=== PATIENT | female | born 1995 | race Caucasian/White ===

== ENCOUNTER 2017-05-17 22:00 | Emergency (ER) | payer OTHER ==
[~2017-05-17] VITALS: Ht 165.1 cm; Wt 90.7 kg
[2017-05-17] MEDS ORDERED: PROPOFOL 10 MG/ML 20 ML IV ONE (23:00)
[2017-05-17] MEDS ORDERED: PROPOFOL 100 ML IV ONE (23:02)
[2017-05-18] MEDS ORDERED: HYDROcodone-ACET 5/325MG TAB PO ONE
[2017-05-18 01:49] VITALS: BP 108/60
== END 2017-05-18 02:50 | disposition home or self-care (01) ==
LOC: EDBD 22:00 → ER 22:19
DX: S83.005A Unspecified dislocation of left patella, initial encounter (principal); Z88.0 Allergy status to penicillin; X58.XXXA Exposure to other specified factors, initial encounter; Y93.01 Activity, walking, marching and hiking; Y92.89 Other specified places as the place of occurrence of the external cause; Y99.8 Other external cause status
CPT/HCPCS: 27560; 73560; 73562; 99152; 99285; J2704

== ENCOUNTER 2024-12-02 09:09 | Emergency (ER) | payer MEDICAID, OTHER ==
[~2024-12-02] VITALS: Ht 165.1 cm; Wt 90.0 kg
[2024-12-02 09:57] VITALS: BP 135/79; PULSE 92; RESP 18; TEMP 98.6; O2SAT 97
[2024-12-02 10:22] LABS: Rapid Strep A Screen-Throat Negative
[2024-12-02 10:34] LABS: COVID19 ANTIGEN SOFIA FIA NEGATIVE (NEGATIVE)
--- NOTE | 2024-12-02 10:39 | ED.PDOC ---
Eye-HPI HPI Comments 29 year old presents for sore throat, right neck tenderness, body aches, fatigue Symptoms started 5 days ago Taking IBU with some improvement Denies fevers chills night sweats unintentional weight loss Denies persistent chest pain, shortness of breath, leg swelling Denies history of asthma nor any breathing conditions Denies history of pneumonia Denies recent international travel Chief Complaint: Sore Throat Time Seen by MD: 09:51 Reviewed Notes: Nurses Notes, Medications, Allergies Allergies: Coded Allergies: Penicillins (Verified Allergy, Unknown, 05/17/17) Home Meds Active Scripts Acetaminophen (Acetaminophen) 500 Mg Tab, 500 MG PO Q6HP PRN for 10 Days, #40 TAB 0 Refills Prov:ALEXYS BONNER ENROLLED AGENT 12/02/24 Amoxicillin & Pot Clavulanate (AUGMENTIN TABLET) 875 Mg Tb, 875 MG PO BID for 7 Days, #14 TAB 0 Refills Prov:ALEXYS BONNER ENROLLED AGENT 12/02/24 Ciprofloxacin-Dexamethasone (Ciprofloxacin/Dexamethaso 0.3-0.1 %) 1 Rupali Rupali, 4 DROP OT BID for 7 Days, #5 ML 0 Refills Prov:ALEXYS BONNER ENROLLED AGENT 12/02/24 Information Source: Patient Mode of Arrival: Ambulatory Past Medical History PAST MEDICAL HISTORY: Denies Surgical History: Denies all surgeries FRONT DESK SPECIALIST History: No Pertinent FRONT DESK SPECIALIST History Family History Family History: Unknown Social History Smoker: Non-Smoker Alcohol: Denies ETOH Use Drugs: Denies Drug Use Lives In: Home All Other Systems: Reviewed and Negative (Per HPI) Physical Exam General Appearance: No Apparent Distress, Normal HEENT: Normal ENT Inspection, Pharynx Normal, TM Abnormal (L) (tm intact. buldging erythematous ), TM Abnormal (R) (tm intact. buldging erythematous ) Neck: Full Range of Motion, Non-Tender, Normal, Normal Inspection Respiratory: Chest Non-Tender, Lungs Clear, No Accessory Muscle Use, No Respiratory Distress, Normal Breath Sounds Cardiovascular: No Edema, No JVD, No Murmur, No Gallop, Normal Peripheral Pulses, Regular Rate/Rhythm Breast Exam: Deferred Gastrointestinal: No Organomegaly, Non Tender, No Pulsatile Mass, Normal Bowel Sounds, Soft Genitalia: Deferred Pelvic: Deferred Rectal: Deferred Extremities: No calf tenderness, Normal capillary refill, Normal inspection, Normal range of motion, Non-tender, No pedal edema Musculoskeletal : Apperance: Normal Neurologic: Alert, No Motor Deficits, Normal Affect, Normal Mood, No Sensory Deficits Cerebellar Function: Normal Reflexes: Normal Skin: Dry, Normal Color, Warm Lymphatic: No Adenopathy Was a procedure done? Was a procedure done?: No EENT DIFF Eye: Other Ear: Cerumen Impaction, Otitis Externa, Otitis Media Sore Throat: Streptococcal, Viral Pharyngitis, URI X-Ray, Labs, Meds, VS Vital Signs Date Time Temp Pulse Resp B/P (MAP) Pulse Ox O2 Delivery O2 Flow Rate FiO2 12/02/24 09:57 98.6 92 18 135/79 (97) 97 98.6 12/02/24 09:57 92 18 97 Room Air 12/02/24 09:43 98.6 92 18 135/79 (97) 97 Lab Test 12/02/24 09:25 Range/Units Influenza Type A Antigen Positive Negative Influenza Type B Antigen Negative Negative SARS-CoV-2 Antigen (Rapid) Negative NEGATIVE Group A Streptococcus Rapid Negative X-Ray, Labs, Meds, VS Comment History and physical consistent w/ influenza and AOM Take medication as prescribed No concerns for pneumonia at this time. Discussed that cough can linger up to 6 weeks after viral URI ED precautions if cough does not alleviate or if cough worsens Supportive care and return precautions discussed Counseled viral infection and explained that antibiotics would not be helpful in resolving the illness sooner. Recommended vitamin C, rest, handwashing, and symptomatic care. Expect 2-week course with possibly of cough lingering up to 6 weeks. Nonpharmacological remedies for fluids has been recommended as well Time of 1ST Reevaluation: 11:00 Reevaluation 1ST: Improved Patient Education/Counseling: Diagnosis, Treatment Family Education/Counseling: Diagnosis, Treatment Departure 1 Departure Time of Disposition: 11:02 Impression: Primary Impression: Influenza A Additional Impression: Acute otitis media Qualified Codes: H66.001 - Acute suppurative otitis media without spontaneo us rupture of ear drum, right ear Disposition: HOME / SELF CARE / HOMELESS Condition: Stable e-Prescriptions Acetaminophen (Acetaminophen) 500 Mg Tab 500 MG PO Q6HP PRN for 10 Days, #40 TAB 0 Refills Prov: ALEXYS BONNER ENROLLED AGENT 12/02/24 Amoxicillin & Pot Clavulanate (AUGMENTIN TABLET) 875 Mg Tb 875 MG PO BID for 7 Days, #14 TAB 0 Refills Prov: ALEXYS BONNER ENROLLED AGENT 12/02/24 Ciprofloxacin-Dexamethasone (Ciprofloxacin/Dexamethaso 0.3-0.1 %) 1 Rupali Rupali 4 DROP OT BID for 7 Days, #5 ML 0 Refills Prov: ALEXYS BONNER ENROLLED AGENT 12/02/24 Discharged With: Self Critical Care Note Critical Care Time?: No Stability Stability form required: No Heart Score Heart Score: Heart Score Response (Comments) Value History N/A 0 EKG N/A 0 Age N/A 0 Risk Factors N/A 0 Troponin N/A 0 Total 0 ALEXYS BONNER ENROLLED AGENT Dec 02, 2024 10:38
[2024-12-02 10:43] LABS: Rapid Influenza B Negative (Negative)
[2024-12-02 10:45] LABS: Rapid Influenza A Positive (Negative)
[2024-12-02] MEDS ORDERED: ACET500T58 PO (11:02)
[2024-12-02] MEDS ORDERED: AUG875T PO (11:02)
[2024-12-02] MEDS ORDERED: CIPR1SUS8 OT (11:02)
== END 2024-12-02 11:15 | disposition home or self-care (01) ==
LOC: ER 09:09
DX: J10.1 Influenza due to other identified influenza virus with other respiratory manifestations (principal); H66.91 Otitis media, unspecified, right ear; Z88.0 Allergy status to penicillin; Z20.822 Contact with and (suspected) exposure to COVID-19
CPT/HCPCS: 36415; 87070; 87426; 87804; 87880